=== PATIENT | female | born 1945 | race Caucasian/White ===

== ENCOUNTER 2022-04-14 23:32 | Emergency (ER) | payer OTHER, BC ==
[2022-04-14 23:45] VITALS: BP 128/79; PULSE 99; RESP 16; TEMP 99; BMI 20.6
[2022-04-14] MEDS ORDERED: DEXAMETHASONE 4 MG TABLET (FP) PO ONE (23:48)
[2022-04-14] MEDS ORDERED: DEXAMETHASONE 4 MG TABLET (FP) ONE (23:51)
[2022-04-14] MEDS: DEXAMETHASONE 4 MG TABLET (FP) PO ONE ×2 (23:53→23:54)
== END 2022-04-15 00:11 | disposition home or self-care (01) ==
LOC: FER 23:32
DX: T78.3XXA Angioneurotic edema, initial encounter (principal)
CPT/HCPCS: 99283-25

== ENCOUNTER 2024-08-17 02:56 | Emergency (ER) | payer OTHER, BC ==
[2024-08-17] MEDS: SODIUM CHLORIDE 0.9% 500 ML INFUS.BAG IV ONE ×2 (03:06→05:44)
[2024-08-17] MEDS ORDERED: FAMOTIDINE 20 MG/50 ML IVPB 20 MG/50 ML MG IVPB ONE (03:07)
[2024-08-17] MEDS ORDERED: ACETAMINOPHEN INJECTION 100 ML ONE (03:07)
[2024-08-17] MEDS ORDERED: ONDANSETRON 4 MG/2 ML VIAL ONE (03:07)
[2024-08-17] MEDS: ONDANSETRON 4 MG/2 ML VIAL IVPB ONE (03:16)
[2024-08-17] MEDS: FAMOTIDINE 20 MG/50 ML IVPB 20 MG/50 ML MG IVPB ONE (03:17)
[2024-08-17] MEDS: ACETAMINOPHEN 1000 MG/100 ML BAG IVPB ONE (03:21)
[2024-08-17 03:26] VITALS: BMI 22.8
[2024-08-17 04:49] LABS: N-TERMINAL BNP 22.2 pg/ml (5-450)
[2024-08-17 04:57] LABS: PROTHROMBIN TIME (PATIENT) 10.7 SEC (9.7-13.0)
[2024-08-17 04:58] LABS: INR 0.98 (0.83-1.09)
[2024-08-17 05:00] LABS: HEMATOCRIT 48.5 % (34.1-44.9); HEMOGLOBIN 15.8 g/dL (11.2-15.7); MCHC 32.6 g/dl (32.2-35.5); MEAN CELL VOLUME 100.6 fl (79.4-94.8); MEAN PLT VOLUME 11.1 fl (9.4-12.3); PLATELET COUNT 253 x10^3/uL (182-369); RDW 13.2 % (12.4-16.6)
[2024-08-17 05:08] LABS: CREATININE 1.1 mg/dL (0.55-1.3); GLUCOSE,RANDOM 184 mg/dL (74-106); SODIUM 134 mmol/L (136-145)
[2024-08-17 05:09] LABS: ALBUMIN 4.5 g/dl (3.4-5.0); ANION GAP 8 mmol/L (4-13); BILIRUBIN,TOTAL 0.5 mg/dL (0.2-1); CHLORIDE 104 mmol/L (98-107); CO2 22 mmol/L (21-32)
[2024-08-17 05:10] LABS: ALK PHOS 83 U/L (45-117); SGOT/AST 103 U/L (15-37); SGPT/ALT 49 U/L (13-61)
[2024-08-17 06:34] LABS: EPI CELLS 13 /uL (0-25.1); HYALINE CASTS 2 /uL (0-3.1); PH,URINE 5.5 (5.0-8.0); URINE APPEARANCE CLEAR; URINE BACTERIA 51 /uL (0-1359); URINE BILIRUBIN NEGATIVE (NEGATIVE); URINE COLOR YELLOW; URINE GLUCOSE (UA) NEGATIVE (NEGATIVE); URINE KETONE NEGATIVE (NEGATIVE); URINE LEUK ESTERASE TRACE (NEGATIVE); URINE NITRITE NEGATIVE (NEGATIVE); URINE PROTEIN 1+ (NEGATIVE); URINE RBC 39 /uL (0-23.9); URINE UROBILINOGEN 0.2 mg/dL (0.2-1.0); URINE WBC 36 /uL (0-25.8)
[2024-08-17 07:40] VITALS: BP 102/67; PULSE 90; RESP 16; TEMP 98.6
[2024-08-17 07:59] LABS: ALBUMIN 4.2 g/dl (3.4-5.0); BILIRUBIN,TOTAL 0.8 mg/dL (0.2-1); BLOOD UREA NITROGEN 18.8 mg/dL (7-18); CALCIUM 9.6 mg/dL (8.5-10.1); CREATININE 0.9 mg/dL (0.55-1.3); POTASSIUM 4.3 mmol/L (3.5-5.1); TOT PROT 8.5 g/dl (6.4-8.2)
== END 2024-08-17 09:03 | disposition home or self-care (01) ==
LOC: FER 02:56
PROC: 3E033GC Introduction of Other Therapeutic Substance into Peripheral Vein, Percutaneous Approach (ICD-10-PCS; principal; 2024-08-17)
PROC: 3E033NZ Introduction of Analgesics, Hypnotics, Sedatives into Peripheral Vein, Percutaneous Approach (ICD-10-PCS; 2024-08-17)
PROC: 3E033GC Introduction of Other Therapeutic Substance into Peripheral Vein, Percutaneous Approach (ICD-10-PCS; 2024-08-17)
DX: K52.9 Noninfective gastroenteritis and colitis, unspecified (principal)
CPT/HCPCS: 36415; 80053; 81003; 82550; 82553; 83880; 84436; 84443; 84484; 85027; 85610; 93005; 96365; 96375; 99284-25